=== PATIENT | male | born 1965 | race Caucasian/White ===

== ENCOUNTER 2021-10-27 13:43 | Emergency (ER) | payer MEDICAID ==
[~2021-10-27] VITALS: Ht 167.6 cm; Wt 120.0 kg
[2021-10-27] MEDS ORDERED: SULF1TAB48 MT (23:45)
[2021-10-27] MEDS ORDERED: SULFAMETHOXAZOLE/TRIMETHOPRIM 800/160MG TABLET PO ONE (23:45)
[2021-10-27] MEDS ORDERED: TETANUS, DIPHTHERIA, PERTUSSIS VAC/PF 0.5ML (>10YR OLD) IM ONE (23:45)
[2021-10-28 00:05] VITALS: BP 136/80
== END 2021-10-28 00:10 | disposition home or self-care (01) ==
LOC: ER 14:13
DX: L03.116 Cellulitis of left lower limb (principal); Z88.0 Allergy status to penicillin
CPT/HCPCS: 90471; 90715; 99283